=== PATIENT | male | born 1975 | race Caucasian/White ===

== ENCOUNTER 2023-03-16 15:44 | Emergency (ER) | payer OTHER ==
--- NOTE | 2023-03-16 18:08 | ED ---
General Adult HPI - General Chief complaint: Fall Stated complaint: Fall-chest pain Time Seen by Provider: 03/16/23 17:59 Source: patient, RN notes reviewed Mode of arrival: ambulatory Limitations: no limitations - History of Present Illness Initial comments: 47 year old male presents to the emergency Department with chief complaint of rib pain. He states that he fell when he was ice skating 4 days ago. He landed with his fist against his chest. He reports pain to his right sided ribs. He states that he has some pain when he takes a deep breath. Denies shortness of breath. Denies any other injury. Denies hitting his head or loss of consciousness. - Related Data Home Medications Medication Instructions Recorded Confirmed No Known Home Medications 03/16/23 03/16/23 Allergies Allergy/AdvReac Type Severity Reaction Status Date / Time No Known Allergies Allergy Verified 03/16/23 20:36 Review of Systems ROS Statement: Those systems with pertinent positive or pertinent negative responses have been documented in the HPI. ROS Other: All systems not noted in ROS Statement are negative. Past Medical History Past Medical History: No Reported History History of Any Multi-Drug Resistant Organisms: None Reported Past Surgical History: Tonsillectomy Additional Past Surgical History / Comment(s): [place] teeth Past Anesthesia/Blood Transfusion Reactions: Motion Sickness, Postoperative Nausea & Vomiting (PONV) Past Psychological History: No Psychological Hx Reported Past Alcohol Use History: Rare Past Drug Use History: None Reported - Past Family History Mother Family Medical History: Cancer Additional Family Medical History / Comment(s): Cervical General Exam Limitations: no limitations General appearance: alert, in no apparent distress Course Vital Signs 03/16/23 03/16/23 15:45 18:45 Temperature 97.7 F 98.2 F Pulse Rate 65 52 L Respiratory 18 16 Rate Blood Pressure 122/72 118/73 O2 Sat by Pulse 94 L 98 Oximetry Medical Decision Making - Medical Decision Making Was pt. sent in by a medical professional or institution (, PA, BEVELING MACHINE OPERATOR, urgent care, hospital, or halfway...) When possible be specific @ -No Did you speak to anyone other than the patient for history (EMS, parent, family, police, friend...)? What history was obtained from this source @ -No Did you review nursing and triage notes (agree or disagree)? Why? @ -I reviewed and agree with nursing and triage notes Were old charts reviewed (outside hosp., previous admission, EMS record, old EKG, old radiological studies, urgent care reports/EKG's, halfway records)? Report findings @ -No old charts were reviewed Differential Diagnosis (chest pain, altered mental status, abdominal pain women, abdominal pain men, vaginal bleeding, weakness, fever, dyspnea, syncope, h eadache, dizziness, GI bleed, back pain, seizure, CVA, palpatations, mental health, musculoskeletal)? @ -Rib fracture, rib contusion, sternum fracture, clavicular fracture, this l ist is not all-inclusive EKG interpreted by me (3pts min.). @ -None X-rays interpreted by me (1pt min.). @ -Chest x-ray and sternum x-ray showed no evidence of acute fracture CT interpreted by me (1pt min.). @ -None done U/S interpreted by me (1pt. min.). @ -None done What testing was considered but not performed or refused? (CT, X-rays, U/S, labs)? Why? @ -None What meds were considered but not given or refused? Why? @ -None Did you discuss the management of the patient with other professionals (professionals i.e. , PA, BEVELING MACHINE OPERATOR, lab, RT, psych nurse, secondary social studies teacher, military cook, teacher, air defence officer, case preparer and liner)? Give summary @ -No Was smoking cessation discussed for >3mins.? @ -No Was critical care preformed (if so, how long)? @ -No Were there social determinants of health that impacted care today? How? (Homelessness, low income, unemployed, alcoholism, drug addiction, transportation, low edu. Level, literacy, decrease access to med. care, senior care, rehab)? @ -No Was there de-escalation of care discussed even if they declined (Discuss DNR or withdrawal of care, Hospice)? DNR status @ -No What co-morbidities impacted this encounter? (DM, HTN, Smoking, COPD, CAD, Cancer, CVA, ARF, Chemo, Hep., AIDS, mental health diagnosis, sleep apnea, morbid obesity)? @ -None Was patient admitted / discharged? Hospital course, mention meds given and route, prescriptions, significant lab abnormalities, going to OR and other pertinent info. @ -Discharged. Patient presented to emergency department with chief complaint of right-sided rib pain following a fall 4 days ago. He does admit to pain with deep breath. X-rays obtained which showed no acute fracture. Lungs sounds clear throughout. Patient advised of findings and would like to be discharged home. Patient stable at time of discharge. Case discussed wit Dr. Peterson Undiagnosed new problem with uncertain prognosis? @ -No Drug Therapy requiring intensive monitoring for toxicity (Heparin, Nitro, Insulin, Cardizem)? @ -No Were any procedures done? @ -No Diagnosis/symptom? @ -rib pain Acute, or Chronic, or Acute on Chronic? @ -acute Uncomplicated (without systemic symptoms) or Complicated (systemic symptoms)? @ -uncomplicated Side effects of treatment? @ -No Exacerbation, Progression, or Severe Exacerbation? @ -No Poses a threat to life or bodily function? How? (Chest pain, [place], MS, pneumonia, PE, COPD, DKA, ARF, appy, cholecystitis, CVA, Diverticulitis, Homicidal, Suicidal, threat to staff... and all critical care pts) @ -No Disposition Clinical Impression: Rib contusion Disposition: HOME SELF-CARE Condition: Stable Instructions (If sedation given, give patient instructions): Rib Contusion (ED) Additional Instructions: Please follow up with your primary care provider. Return to emergency department for new or worsening symptoms. Is patient prescribed a controlled substance at d/c from ED?: No Referrals: None,Stated [Primary Care Provider] - 1-2 days
--- NOTE | 2023-03-16 18:52 | XR ---
EXAMINATION TYPE: XR sternum DATE OF EXAM: 03/16/2023 COMPARISON: None HISTORY: Fall, pain TECHNIQUE: 2 view sternum FINDINGS: No acute displaced fractures are evident. Retrosternal space appears preserved. Xiphoid pro cess and manubrium appear normal. IMPRESSION: 1. No acute osseous abnormality sternum. Follow up exams can be performed as clinically indicated
--- NOTE | 2023-03-16 18:54 | XR ---
EXAMINATION TYPE: XR chest 2V DATE OF EXAM: 03/16/2023 COMPARISON: None INDICATION: Fall, pain TECHNIQUE: Frontal and lateral views of the chest are obtained. FINDINGS: The heart size is normal. The pulmonary vasculature is normal. The lungs are clear. No displaced rib fractures are evident. No displaced sternal fracture is identi fied. Mediastinum appears normal. No pneumothorax is evident IMPRESSION: 1. No acute pulmonary process.
[2023-03-16 19:04] VITALS: BP 118/73; PULSE 52; RESP 16; TEMP 98.2
== END 2023-03-16 20:01 | disposition home or self-care (01) ==
LOC: EC 15:44
DX: S20.211A Contusion of right front wall of thorax, initial encounter (principal); W00.0XXA Fall on same level due to ice and snow, initial encounter; Y93.21 Activity, ice skating
CPT/HCPCS: 71046; 71120; 99283